=== PATIENT | female | born 1975 | race Two or more races ===

== ENCOUNTER 2016-12-27 18:49 | Emergency (ER) | payer OTHER ==
[~2016-12-27] VITALS: Ht 152.4 cm; Wt 101.2 kg
[2016-12-27 19:08] VITALS: BP 140/91
[2016-12-27] MEDS ORDERED: KETOROLAC TROMETH 60MG/2ML VIAL IM ONE (20:00)
== END 2016-12-27 20:43 | disposition home or self-care (01) ==
LOC: ER 18:53
DX: S09.90XA Unspecified injury of head, initial encounter (principal); Z88.6 Allergy status to analgesic agent; R42 Dizziness and giddiness; W22.8XXA Striking against or struck by other objects, initial encounter; Y93.89 Activity, other specified; Y99.8 Other external cause status; Y92.89 Other specified places as the place of occurrence of the external cause
CPT/HCPCS: 70450; 96372; 99284; J1885

== ENCOUNTER 2018-01-12 22:16 | Emergency (ER) | payer OTHER ==
[~2018-01-12] VITALS: Ht 152.4 cm; Wt 63.5 kg
[2018-01-13] MEDS: KETOROLAC TROMETH 60MG/2ML VIAL IM ONE (00:29)
[2018-01-13 01:20] VITALS: BP 126/70
[2018-01-13 01:20] LABS: Urine Bacteria FEW /hpf (None Seen); Urine Blood Negative /uL (Negative); Urine Mucus FEW (None Seen); Urine Specific Gravity 1.024 (1.001-1.035); Urine WBC 9 /hpf (0 - 5)
[2018-01-13] MEDS: BACLOFEN 10 MG TAB PO ONE (02:00)
== END 2018-01-13 02:24 | disposition home or self-care (01) ==
LOC: EDBD 22:16 → ER 22:16
DX: S13.4XXA Sprain of ligaments of cervical spine, initial encounter (principal); S29.012A Strain of muscle and tendon of back wall of thorax, initial encounter; Z88.5 Allergy status to narcotic agent; V89.2XXA Person injured in unspecified motor-vehicle accident, traffic, initial encounter; Y93.89 Activity, other specified; Y99.8 Other external cause status; Y92.488 Other paved roadways as the place of occurrence of the external cause
CPT/HCPCS: 72125; 72128; 81001; 96372; 99285; J1885

== ENCOUNTER 2018-11-28 23:14 | Emergency (ER) | payer OTHER ==
[~2018-11-28] VITALS: Ht 149.9 cm; Wt 55.3 kg
[2018-11-29 02:40] VITALS: BP 103/72
== END 2018-11-29 05:01 | disposition home or self-care (01) ==
LOC: EDBD 23:14 → ER 23:14
DX: S16.1XXA Strain of muscle, fascia and tendon at neck level, initial encounter (principal); M62.838 Other muscle spasm; M25.511 Pain in right shoulder; Z88.6 Allergy status to analgesic agent; X50.0XXA Overexertion from strenuous movement or load, initial encounter; Y93.89 Activity, other specified; Y92.89 Other specified places as the place of occurrence of the external cause; Y99.8 Other external cause status
CPT/HCPCS: 72125; 99284; J7030